=== PATIENT | male | born 2005 | race Caucasian/White ===

== ENCOUNTER 2024-01-06 10:07 | Emergency (ER) | payer OTHER ==
[~2024-01-06] VITALS: Ht 172.7 cm; Wt 67.1 kg
[2024-01-06 10:11] VITALS: BP 132/64; TEMP 98.7; O2SAT 100
== END 2024-01-06 10:59 ==
LOC: ER 10:10
DX: Z02.9 Encounter for administrative examinations, unspecified (principal)